=== PATIENT | female | born 2000 | race African-American/Black ===

== ENCOUNTER 2018-05-17 15:18 | Outpatient (CLI) | payer OTHER ==
--- NOTE | 2018-05-17 18:38 | MRI ---
MRI LUMBAR SPINE NONCONTRAST: DATE: 05/17/18 HISTORY: 17-year-old female with M54.41, acute midline low back pain with right sided sciatica. M54.1 6, lumbar radiculopathy. COMPARISON: No prior CTs or MRIs. FINDINGS: For the purposes of this report, it will be assumed that there are 5 lumbar-type vertebrae. The vert ebral body heights are maintained. Alignment is normal. Disc spaces are maintained. There is a minima l right-convex lateral curvature. Conus medullaris terminates at L1. Cauda equina is arranged in a sy mmetrical, normal distribution throughout the thecal sac. Perivertebral spaces are unremarkable. Ther e is no nerve root impingement at any level. The findings by individual levels are as follows: T12-L1: Normal. L1-2: Normal. L2-3: Normal. L3-4: Essentially normal. L4-5: Minimal disc bulge. No significant central spinal canal stenosis. Small posterior epidural fat pad. No high grade thecal sac stenosis. No neural foraminal stenosis. Mild bilateral degenerative fac et changes. L5-S1: Essentially normal. IMPRESSION: 1. Mild bilateral facet osteoarthrosis at L4-5. 2. Otherwise, essentially normal. DIANE Whittaker POS: ARTEMIO
== END 2018-05-17 15:19 | disposition home or self-care (01) ==
LOC: BICMRI 15:18
PROVIDERS: ATTEND Orthopaedic Surgery
DX: M47.26 Other spondylosis with radiculopathy, lumbar region (principal); M54.41 Lumbago with sciatica, right side
CPT/HCPCS: 72148